=== PATIENT | male | born 1975 | race Caucasian/White ===

== ENCOUNTER 2017-04-22 21:34 | Emergency (ER) | payer OTHER ==
[~2017-04-22] VITALS: Ht 172.7 cm; Wt 74.8 kg
[2017-04-23] MEDS ORDERED: OMEPRAZOLE40 MG PO (00:29)
[2017-04-23] MEDS ORDERED: RANITIDINE HCL300 MG PO (00:29)
== END 2017-04-23 00:39 | disposition home or self-care (01) ==
LOC: ER 21:34
DX: K21.9 Gastro-esophageal reflux disease without esophagitis (principal); K11.7 Disturbances of salivary secretion